=== PATIENT | male | born 1990 | race African-American/Black ===

== ENCOUNTER 2018-04-14 12:21 | Emergency (ER) | payer SELFPAY ==
--- NOTE | 2018-04-14 13:32 | RAD ---
LEFT FOOT 3 VIEWS: Date: 04/14/18 HISTORY: Injury. Pain. COMPARISON: None. FINDINGS: There is dorsal dislocation of the great toe metatarsophalangeal joint with nearly 1.0 cm retraction. IMPRESSION: Dorsal dislocation of the great toe metatarsophalangeal joint. POS: TPC
[2018-04-14] MEDS ORDERED: Lidocaine 1% w/Epinephrine 1:100K 20 ML VIAL ONE (14:06)
[2018-04-14] MEDS ORDERED: Ketorolac Tromethamine 30 MG/ML VIAL ONE (14:33)
--- NOTE | 2018-04-14 15:11 | RAD ---
LEFT FOOT THREE VIEWS: History: Post reduction. FINDINGS: The dislocation at the metatarsal phalangeal joint of the great toe has been reduced and alignment ap pears satisfactory. The medial or tibial sesamoid is slightly inferior in position in relation to the lateral sesamoid. IMPRESSION: Reduction of great toe as discussed above. POS: C
== END 2018-04-14 15:14 | disposition home or self-care (01) ==
LOC: SCSER 12:21
DX: S93.122A Dislocation of metatarsophalangeal joint of left great toe, initial encounter (principal); F17.200 Nicotine dependence, unspecified, uncomplicated; W22.8XXA Striking against or struck by other objects, initial encounter
CPT/HCPCS: 28630; 96372; J1885; J2001